=== PATIENT | female | born 1945 | race Caucasian/White ===

== ENCOUNTER 2022-04-12 12:47 | Outpatient (CLI) | payer MEDICARE, OTHER ==
[~2022-04-12 12:47] MED LIST: ACET-2119 PO; BARIUM SULFATE 340 ML SUSP.RECON***PROCEDURE AREA ONLY**DONT ENTER PO ONE; CLOP75TA34 PO; MULT-1085 PO; VARIOUS SUPPLEMENTS
== END 2022-04-12 23:59 | disposition home or self-care (01) ==
LOC: RAD 12:47
PROVIDERS: ATTEND Student in an Organized Health Care Education/Training Program
DX: R13.14 Dysphagia, pharyngoesophageal phase (principal); R49.0 Dysphonia; K21.9 Gastro-esophageal reflux disease without esophagitis
CPT/HCPCS: 74230